=== PATIENT | female | born 1995 ===

== ENCOUNTER → 2018-02-15 10:06 | Outpatient (CLI) | payer BC | END | disposition home or self-care (01) | LOC: LAB 10:06 | DX: Z34.81 Encounter for supervision of other normal pregnancy, first trimester (principal) ==

== ENCOUNTER 2018-05-13 02:23 | Outpatient (CLI) | payer BC | END 2018-05-14 11:25 | disposition home or self-care (01) | LOC: OBS/DEL 02:23 | DX: O26.892 Other specified pregnancy related conditions, second trimester (principal); K52.89 Other specified noninfective gastroenteritis and colitis; Z34.82 Encounter for supervision of other normal pregnancy, second trimester ==

== ENCOUNTER 2018-08-05 09:00 | Inpatient (IN) | payer BC ==
[~2018-08-05] VITALS: Ht 167.6 cm; Wt 87.1 kg
[2018-08-19] MEDS ORDERED: PRENATAL TABLE1 EAC1 PO (22:11)
== END 2018-08-22 14:15 | disposition home or self-care (01) | DRG 807 ==
LOC: OB/GYN 08-19 21:47 → LDR 08-19 21:47 → OB/GYN 08-19 23:29 → LDR 08-19 23:31 → OB/GYN 08-20 07:06
PROVIDERS: ADMIT Obstetrics & Gynecology
PROC: 10E0XZZ Delivery of Products of Conception, External Approach (ICD-10-PCS; principal; 2018-08-19)
PROC: 0KQM0ZZ Repair Perineum Muscle, Open Approach (ICD-10-PCS; 2018-08-19)
PROC: 10907ZC Drainage of Amniotic Fluid, Therapeutic from Products of Conception, Via Natural or Artificial Opening (ICD-10-PCS; 2018-08-19)
PROC: 3E033VJ Introduction of Other Hormone into Peripheral Vein, Percutaneous Approach (ICD-10-PCS; 2018-08-19)
PROC: 4A1HXCZ Monitoring of Products of Conception, Cardiac Rate, External Approach (ICD-10-PCS; 2018-08-19)
DX: O70.1 Second degree perineal laceration during delivery (principal); Z37.0 Single live birth; Z3A.38 38 weeks gestation of pregnancy